=== PATIENT | male | born 1960 | race Hispanic/Latino ===

== ENCOUNTER 2021-03-05 12:49 | Emergency (ER) | payer SELFPAY ==
[~2021-03-05] VITALS: Ht 170.2 cm; Wt 83.9 kg
[2021-03-05 12:50] VITALS: BP 132/74
[2021-03-05] MEDS ORDERED: CEFTRIAXONE 1G VIAL IM STA (15:30)
[2021-03-05] MEDS ORDERED: HYDROCODONE/ACETAMINOPHEN 5/325 MG TAB PO STA (15:30)
[2021-03-05] MEDS ORDERED: SULFAMETHOX-TMP DS 800/160 TAB PO STA (15:30)
[2021-03-05] MEDS ORDERED: LIDOCAINE HCL-MPF 1% 2ML VIAL ONE (15:52)
[2021-03-05] MEDS ORDERED: CEPH500B PO (16:29)
[2021-03-05] MEDS ORDERED: NAPR-1180 PO ×2 (16:29→16:47)
[2021-03-05] MEDS ORDERED: SULF1TAB42 PO (16:29)
== END 2021-03-05 16:51 | disposition home or self-care (01) ==
LOC: EDH 12:49
DX: S80.811A Abrasion, right lower leg, initial encounter (principal); I10 Essential (primary) hypertension; E11.9 Type 2 diabetes mellitus without complications; Z79.1 Long term (current) use of non-steroidal anti-inflammatories (NSAID); X58.XXXA Exposure to other specified factors, initial encounter; Y93.89 Activity, other specified; Y92.89 Other specified places as the place of occurrence of the external cause; Y99.8 Other external cause status
CPT/HCPCS: 73590; 96372; 99283; J0696; J3490